=== PATIENT | male | born 1985 | race Two or more races ===

== ENCOUNTER 2025-02-07 19:41 | Emergency (ER) | payer MEDICAID, OTHER ==
[~2025-02-07] VITALS: Ht 180.3 cm; Wt 81.0 kg
[2025-02-07] MEDS: IBUPROFEN 600 MG TAB PO ONE (20:59)
[2025-02-07] MEDS: ACETAMINOPHEN 325 MG TAB PO ONE (20:59)
[2025-02-07 21:00] VITALS: BP 128/88; PULSE 79; RESP 17; TEMP 98; O2SAT 95
--- NOTE | 2025-02-07 21:10 | ED.PDOC ---
History of Present Illness HPI Comments 39-year-old male, with a history of autism spectrum disorder, presents with mother for chief complaint of right-sided head pain status post head injury. Per mother, patient injured the right side of his head after being hit by a truck latch, while assisting her put away a ice box, yesterday. No reported lo ss of consciousness or emesis since then. Additional associated symptoms of blurry vision to the right eye and patient being sounds sleeping a lot more than usual. Denial of any additional injuries or further acute symptoms at this time. REVIEW OF SYSTEMS: General: No fever, no chills, or fatigue HEENT: Right-sided headache. Right eye blurry vision. No sore throat, no earache, no congestion, no neck pain. Cardiac: No chest pain. No palpitations. Lungs: No shortness of breath, no cough. GI: No nausea, no vomiting, no diarrhea, no constipation, no abdominal pain : No dysuria, frequency, or urgency. No hematuria. Musculoskeletal: No joint pain , no joint swelling, no extremity edema. Skin: No rash, no itching. Neuro: Right-sided headache, no dizziness, no weakness PHYSICAL EXAM: General: Awake, alert and oriented. No acute distress. Skin: Skin in warm, dry and intact. Appropriate color for ethnicity. HEENT: The head is normocephalic and atraumatic. Conjunctivae are clear without exudates or hemorrhage. Sclera is non-icteric. EOM are intact. PERRLA No signs of nystagmus. Eyelids are normal in appearance without swelling or lesions. Oral mucosa is pink and moist Neck: The neck is supple with normal range of motion. No JVD. Cardiac: Heart rate and rhythm are normal. No murmurs, gallops, or rubs are auscultated. Respiratory: No signs of respiratory distress. Lung sounds are clear in all lobes bilaterally without rales, rhonchi, or wheezes. Abdominal: Abdomen is soft, non-tender without distention, guarding or rigidity. Bowel sounds are present and normoactive in all four quadrants. Extremities: Upper and lower extremities are atraumatic in appearance without deformity or edema. Neurological: The patient is awake, alert and oriented to person, place, and time with normal speech. Speech is clear. There is no facial asymmetry. Normal [id number] test. Patient is able to stand on each leg, individually, without difficulty. Normal gait. Chief Complaint: Head Injury Time Seen by MD: 19:55 Reviewed Notes: Nurses Notes, Medications, Allergies Allergies: Coded Allergies: Sulfa Antibiotics (Verified Allergy, Unknown, 02/07/25) Information Source: Relative (Mother) Mode of Arrival: Ambulatory Past Medical History PAST MEDICAL HISTORY: GERD Past Medical History (Other): ASD Surgical History: Denies all surgeries Family History Family History: Unknown Social History Smoker: Non-Smoker Alcohol: Denies ETOH Use Drugs: Denies Drug Use Lives In: Home, Assisted Care Was a procedure done? Was a procedure done?: No Differential Dx Considerations may include: DDX includes MSK trauma, facial fractures, ICH or traumatic SAH, C-spine injury, other X-Ray, Labs, Meds, VS Vital Signs Date Time Temp Pulse Resp B/P (MAP) Pulse Ox O2 Delivery O2 Flow Rate FiO2 02/07/25 21:00 79 17 95 Room Air 02/07/25 21:00 98.0 79 17 128/88 (101) 95 98.0 02/07/25 19:44 98.0 91 16 127/67 96 98.0 Current Medications Medications (Trade) Dose Ordered Sig/Arleth Route Start Time Stop Time Status Last Admin Acetaminophen (Tylenol Tablet) 650 mg ONCE ONCE PO 02/07/25 20:30 02/07/25 20:31 DC 02/07/25 20:59 Ibuprofen (Motrin Tablet) 600 mg ONCE ONCE PO 02/07/25 20:30 02/07/25 20:31 DC 02/07/25 20:59 [place] [id number] Ph: [phone] DIAGNOSTIC IMAGING Diagnostic Imaging Report : [id number] Signed PATIENT: DENISHA PATEL ACCT: [id number] UNIT: [id number] : 1985 LOC: ER ROOM / BED: / AGE / SEX: 39 / M ADM STATUS: REG ER SERVICE 18 ORDERING PHYSICIAN: DALE CHURCH MD PROCEDURE(s): HWOCT - HEAD WITHOUT CONTRAST REASON: head injury headache ORDER NUMBER(s): [id number], ACCESSION NUMBER(s): [id number] EXAM: CT HEAD WITHOUT CONTRAST INDICATION: head injury headache TECHNIQUE: CT of the head without intravenous contrast. Radiation Dose Information: CT Dose: CTDI volume is 62.43 mGy. Dose-length product is of 1105.31 mGy*cm The dose indicators for CT are the volume Computed Tomography (CT) Dose Index (CTDIvol) and the Dose Length Product (DLP), and are measured in units of mGy and mGy-cm, respectively. These indicators are not patient dose, but values generated from the CT scanner acquisition factors. The report includes radiation exposure data for exposures received during this examination. COMPARISON: None FINDINGS: There is no evidence of acute intracranial hemorrhage, extra-axial collection, mass effect, midline shift, herniation or hydrocephalus. The ventricles, sulci and cisterns are age appropriate. The medina-white differentiation is intact. Patchy periventricular and subcortical white matter hypoattenuation is nonspecific but may be related to small vessel ischemic disease. The visualized paranasal sinuses and mastoid air cells are clear. The surrounding soft tissues and osseous structures are unremarkable. IMPRESSION: 1. No acute intracranial abnormality. ATED BY: TARUN ADDISON Jr., DO DICTATED DATE/TIME: 02/07/252157 SIGNED BY: TARUN ADDISON Jr., SIGNED DATE/TIME: 02/07/252157 CC: Time of 1ST Reevaluation: 20:25 Reevaluation 1ST: Unchanged Patient Education/Counseling: Treatment, Need For Follow Up Family Education/Counseling: Treatment, Need For Follow Up SEPSIS Sepsis Screen Date sepsis recognized/suspect: Feb 07, 2025 Time Sepsis recognized/suspect: 1946 Recent Procedure: No On Antibiotic Therapy: No Respiratory Rate >20: No Heart Rate >90: No Temp<36 C (96.8 F) or >38.3 C: No SBP <90 or MAP <65 mmHG: No New Acute Mental Status Change: No Is the patient on CPAP, BIPAP,: No Physician Orders Head Without Contrast (02/07/25 20:19) Vital Signs Date Time Temp Pulse Resp B/P (MAP) Pulse Ox O2 Delivery O2 Flow Rate FiO2 02/07/25 21:00 79 17 95 Room Air 02/07/25 21:00 98.0 79 17 128/88 (101) 95 98.0 02/07/25 19:44 98.0 91 16 127/67 96 98.0 Medications Medications Dose Ordered Sig/Arleth Route Start Time Stop Time Status Last Admin Dose Admin Acetaminophen 650 mg ONCE ONCE PO 02/07/25 20:30 02/07/25 20:31 DC 02/07/25 20:59 Ibuprofen 600 mg ONCE ONCE PO 02/07/25 20:30 02/07/25 20:31 DC 02/07/25 20:59 Departure 1 Departure Time of Disposition: 22:46 Impression: Primary Impression: Head injury Additional Impressions: Headache Concussion syndrome Disposition: 01 HOME / SELF CARE / HOMELESS Condition: Stable Additional Instructions: ED DISCHARGE INSTRUCTIONS Instructions: Please read all instructions provided in this packet carefully. Although you have been discharged from the Emergency Department, this does not mean that you have a "clean bill of health". No definitive diagnosis for your symptoms has been made today. It is possible that you are in the process of developing a serious illness. This is why you must return to the ED without fail if any new or worsening symptoms (especially if your symptoms include chest pain, trouble breathing, abdominal pain, fever, headache, confusion, trouble seeing, or trouble walking) It is also very important that you see a primary care provider (PCP) within the next 3-5 days to follow up. If you are unable to get an appointment, return to the ED for re-evaluation. Head Injury: Care Instructions Table of Contents Overview How can you care for yourself at home? When should you call for help? Credits Overview Most injuries to the head are minor. Bumps, cuts, and scrapes on the head and face usually heal well and can be treated the same as injuries to other parts of the body. Although it's rare, once in a while a more serious problem shows up after you are home. So it's good to be on the lookout for symptoms for a day or two. Follow-up care is a almazan part of your treatment and safety. Be sure to make and go to all appointments, and call your doctor if you are having problems. It's also a good idea to know your test results and keep a list of the medicines you take. How can you care for yourself at home? Follow your doctor's instructions. The doctor will tell you if you need someone to watch you closely for the next 24 hours or longer. Take it easy for the next few days or more if you are not feeling well. Ask your doctor when it's okay for you to go back to activities like driving a car, riding a bike, or operating machinery. When should you call for help? Call 911 anytime you think you may need emergency care. For example, call if: You have a seizure. You passed out (lost consciousness). You are confused or can't stay awake. You have a headache that gets worse and does not go away. You have new vision changes or one pupil (the black part in the middle of the eye) that is larger than the other. You have slurred speech, balance problems, or decreased coordination. Call your doctor now or seek immediate medical care if: You have new or worse vomiting. You feel less alert. You have new weakness or numbness in any part of your body. You have new symptoms, such as unclear thinking or changes in mood. Watch closely for changes in your health, and be sure to contact your doctor if: You do not get better as expected. Credits for Head Injury: Care Instructions Current as of: May 08, 2023 Author: [employer] Staff Discharged With: Relative (Mother) Comments 39-year-old male who presents with a headache after head injury. No focal neurological symptoms. Neuro exam is benign. Pt is nontoxic. VSS. Based on history and normal neurological exam I have low suspicion for intracranial tumor, intracranial bleed, meningitis, temporal arteritis, glaucoma, CO poisoning. Most likely patient has benign headache, recommend rest, hydration, and OTC pain control. Critical Care Note Critical Care Time?: No Stability Stability form required: No Heart Score Heart Score: Heart Score Response (Comments) Value History N/A 0 EKG N/A 0 Age N/A 0 Risk Factors N/A 0 Troponin N/A 0 Total 0 I personally scribed for DALE CHURCH MD ([email or web address]) on 02/07/25 at 21:09. Electronically submitted by Marlon Mcconnell ([email or web address]). I personally scribed for DALE CHURCH MD ([email or web address]) on 02/07/25 at 22:57. Electronically submitted by Marlon Mcconnell ([email or web address]). DALE CHURCH MD Feb 07, 2025 21:09
--- NOTE | 2025-02-07 22:01 | DVH ---
EXAM: CT HEAD WITHOUT CONTRAST INDICATION: head injury headache TECHNIQUE: CT of the head without intravenous contrast. Radiation Dose Information: CT Dose: CTDI volume is 62.43 mGy. Dose-length product is of 1105.31 mGy* cm The dose indicators for CT are the volume Computed Tomography (CT) Dose Index (CTDIvol) and the Dose Length Product (DLP), and are measured in units of mGy and mGy-cm, respectively. These indicators are not patient dose, but values generated from the CT scanner acquisition factors. The report includes radiation exposure data for exposures received during this examination. COMPARISON: None FINDINGS: There is no evidence of acute intracranial hemorrhage, extra-axial collection, mass effect, midline s hift, herniation or hydrocephalus. The ventricles, sulci and cisterns are age appropriate. The medina-white differentiation is intact. Patchy periventricular and subcortical white matter hypoattenuation is nonspecific but may be related to small vessel ischemic disease. The visualized paranasal sinuses and mastoid air cells are clear. The surrounding soft tissues and osseous structures are unremarkable. IMPRESSION: 1. No acute intracranial abnormality.
== END 2025-02-07 23:12 | disposition home or self-care (01) ==
LOC: ER 19:41
DX: S09.90XA Unspecified injury of head, initial encounter (principal); F07.81 Postconcussional syndrome; H53.8 Other visual disturbances; X58.XXXA Exposure to other specified factors, initial encounter; Y93.89 Activity, other specified; Y92.410 Unspecified street and highway as the place of occurrence of the external cause; Y99.8 Other external cause status
CPT/HCPCS: 70450